=== PATIENT | female | born 1980 | race Hispanic/Latino ===

== ENCOUNTER 2018-09-21 05:30 | Day surgery (SDC) | payer BC ==
[2018-09-20 15:21] LABS: BASOPHILS % (AUTO) 0.5 % (0.0-5.0); EOSINOPHILS % (AUTO) 1.9 % (0.0-8.0); HEMATOCRIT 33.6 % (36-48); LYMPHOCYTES % (AUTO) 38.1 % (21.0-51.0); MEAN CORPUSCULAR HGB CONC 32.4 g/dL (32.0-36.0); MEAN CORPUSCULAR VOLUME 86.6 fL (79-99); MONOCYTES % (AUTO) 8.2 % (3.0-13.0); NEUTROPHILS % (AUTO) 51.3 % (40.0-77.0); NUCLEATED RED BLOOD CELLS 0.1 % (0.0-0.19); PLATELET COUNT (AUTO) 304 K/uL (130-400); RED BLOOD CELL COUNT(AUTO) 3.88 MIL/uL (4.00-5.50); RED CELL DISTRIBUTION WIDTH 14.7 % (11.0-15.5); WHITE BLOOD COUNT (AUTO) 4.8 K/uL (4.8-10.8)
[2018-09-20 16:55] VITALS: BP 138/58
[2018-09-21] VITALS (14 sets, daily range): BP systolic 113–129; BP diastolic 62–80
[~2018-09-21] VITALS: Ht 162.6 cm; Wt 78.3 kg
[~2018-09-21 05:30] MED LIST: IRON PO
[2018-09-21] MEDS: CALDOLOR 800MG+NS 250ML 250 ML IV SCH ×2 (05:51→06:55)
[2018-09-21] MEDS: CEFAZOLIN SODIUM 1 GM VIAL IVP SCH ×2 (05:51→06:50)
[2018-09-21] MEDS ORDERED: LACTATED RINGERS 1000ML 1,000 ML IV SCH (06:00)
[2018-09-21] MEDS ORDERED: LIDOCAINE PF 2% 5ML ABBOJECT ONE (06:27)
[2018-09-21] MEDS ORDERED: ROCURONIUM 10MG/1ML SYR 10 MG/ML ML ONE (06:28)
[2018-09-21] MEDS ORDERED: PROPOFOL 10 MG/ML 20ML VIAL IV ONE (06:28)
[2018-09-21] MEDS ORDERED: FENTANYL CITRATE PF 50 MCG/1 ML 2ML VIAL ONE (06:28)
[2018-09-21] MEDS ORDERED: MIDAZOLAM HCL 1 MG/ML 2ML VIAL ONE (06:28)
[2018-09-21] MEDS ORDERED: GLYCOPYRROLATE 1 MG/5 ML SYRINGE ONE (07:10)
[2018-09-21] MEDS ORDERED: NEOSTIGMINE 5MG/5ML SYR IV ONE (07:10)
--- NOTE | 2018-09-21 08:26 | NUR ---
POST-PROCEDURE RECEIVED FROM RR VIA STRETCHER S/P D&C, HYSTEROSCOPY, EUA. CONNECTED TO CONTINUOUS CARDIOPULMONARY MONITORING. AWAKE, C/O OF NAUSEA. DENIES PAIN. RA PAD WITH SMALL AMOUNT OF SEROUSANGINOUS DRAINAGE. STRETCHER IN LOWEST POSITION, CALL LIGHT W/IN REACH, SIDE RAILS UP X2.
[2018-09-21] MEDS ORDERED: ONDANSETRON HCL 4 MG/2 ML VIAL ONE (08:39)
--- NOTE | 2018-09-21 09:20 | NUR ---
EDUCATION DAY PT DISCHARGE INSTRUCTIONS, MED REC, AND PT EDUCATION REVIEWED WITH PT IN [place] WITH SALES [employer]ENT [employer]CIAL REPORT SERVICE [employer]. EDUCATED TO NOTIFY MD OR RETURN TO ER IF UNABLE TO VOID FOR 6-8 HOURS AFTER BEING DISCHARGED. VERBALIZED UNDERSTANDING OF ALL DISCHARGE INSTRUCTIONS. OPPORTUNITY GIVEN TO ASK QUESTIONS. QUESTIONS ADDRESSED.
--- NOTE | 2018-09-21 09:24 | NUR ---
DISCHARGE DISCHARGED VIA W/C. AWAKE IN NO ACUTE DISTRESS. DENIES NAUSEA/PAIN.
== END 2018-09-21 09:24 | disposition home or self-care (01) ==
LOC: DAH 05:30
PROVIDERS: ATTEND Obstetrics & Gynecology
DX: N92.1 Excessive and frequent menstruation with irregular cycle (principal); Z98.51 Tubal ligation status; Z90.49 Acquired absence of other specified parts of digestive tract; Z79.899 Other long term (current) drug therapy
CPT/HCPCS: 36415; 58563; 84703; 85025; 86850; 86900; 86901; 88305; A4351; A4355; J0690; J1741; J2001; J2250; J2405; J2704; J2710; J3010; J3490; J7030 ×2; J7120